=== PATIENT | female | born 1985 | race Caucasian/White ===

== ENCOUNTER 2017-05-31 20:36 | Emergency (ER) | payer OTHER ==
[~2017-05-31] VITALS: Ht 162.6 cm; Wt 65.8 kg
[2017-05-31 20:46] VITALS: BP 121/85
--- NOTE | 2017-05-31 21:21 | PHYS DOC ---
Past History Past Medical History: No Pertinent History Past Surgical History: Tubal ligation, Other Alcohol Use: Rarely Drug Use: None Adult General Chief Complaint Chief Complaint: LACERATION/AVULSION HPI HPI Patient is a 31 year old female who presents with complaint of laceration to the left thumb. Patient states that she was using a kitchen knife to open a box to an ice cream cake when she accidentally sliced the tip of her left thumb. Bleeding was controlled prior to arrival. Patient states that her tetanus is up- to-date. Patient came to have her wound evaluated for need for wound closure. The patient states her last menstrual period was over one month ago. She has had history of tubal ligation. Patient denies loss of motor function of the affected thumb. Review of Systems Review of Systems Constitutional: Denies fever or chills [] HENT: Denies nasal congestion or sore throat [] Musculoskeletal: Denies back pain or joint pain [] Integument: Left thumb laceration[] Neurologic: Denies headache, focal weakness or sensory changes [] Allergies Allergies Allergies Coded Allergies Type Severity Reaction Last Updated Verified nalbuphine Allergy Severe Anaphylaxis 05/31/17 Yes butorphanol Allergy Unknown Unknown 05/31/17 Yes Physical Exam Physical Exam Constitutional: Well developed, well nourished, no acute distress, non-toxic appearance. [] HENT: Normocephalic, atraumatic, bilateral external ears normal, oropharynx moist, no oral exudates, nose normal. [] Skin: Warm, dry, 1 cm linear superficial laceration into dermal layer of the distal tip of the left thumb. [] Extremities: No tenderness, no cyanosis, no clubbing, ROM intact, no edema. [] Neurologic: Alert and oriented X 3, normal motor function, normal sensory function, no focal deficits noted. [] Current Patient Data Vital Signs Vital Signs Date Time Temp Pulse Resp B/P (MAP) Pulse Ox O2 Delivery O2 Flow Rate FiO2 05/31/17 20:46 98.0 77 16 96 Room Air Lab Results Laboratory Tests Test 05/31/17 21:19 POC Urine HCG, Qualitative hcg negative (Negative) EKG EKG Not performed[] Radiology/Procedures Radiology/Procedures Indication: Left thumb laceration Procedure: The patient was placed in the appropriate position. The area was then cleansed with tap water and antibacterial soap. The laceration was closed using Skin affix tissue adhesive and Steri-Strips. Total repaired wound length: 1 cm. The patient tolerated the procedure without difficulty. Complications: None.[] Course & Med Decision Making Course & Med Decision Making Pertinent Labs and Imaging studies reviewed. (See chart for details) Patient's laceration was repaired as outlined in the procedure note. Advised follow-up in one week with primary doctor as needed. Instructed patient that the Steri-Strips and adhesive would come off spontaneously. Advised return emergency department for any worsening symptoms. Patient voiced understanding and in agreement with treatment plan. Dragon Disclaimer Dragon Disclaimer This chart was dictated in whole or in part using Voice Recognition software in a busy, high-work load, and often noisy Emergency Department environment. It may contain unintended and wholly unrecognized errors or omissions. Departure Departure: Impression: Primary Impression: Thumb laceration Disposition: 01 HOME, SELF-CARE Condition: IMPROVED Referrals: FELIPE WALDROP DO (PCP) Patient Instructions: Tissue Adhesive Wound Care Additional Instructions: Follow-up with your primary doctor in 1 week as needed. Return to emergency department for any worsening symptoms. Problem Qualifiers Primary Impression: Thumb laceration Encounter type: initial encounter Damage to nail status: without damage Foreign body presence: without foreign body Laterality: left Qualified Codes : S61.012A - Laceration without foreign body of left thumb without damage to nail, initial encounter ROWAN DARDEN MD May 31, 2017 21:21
== END 2017-05-31 21:25 | disposition home or self-care (01) ==
LOC: ER 20:36
DX: S61.012A Laceration without foreign body of left thumb without damage to nail, initial encounter (principal); Z88.8 Allergy status to other drugs, medicaments and biological substances; W26.0XXA Contact with knife, initial encounter; Y93.89 Activity, other specified; Y99.8 Other external cause status; Y92.89 Other specified places as the place of occurrence of the external cause
CPT/HCPCS: 12001; 81025; 99283-25

== ENCOUNTER → 2017-08-26 | Outpatient (CLI) | payer OTHER ==
--- NOTE | 2017-08-26 13:14 | RAD ---
Abdominal ultrasound, 08/26/2017: History: Right upper quadrant abdominal pain The gallbladder is within normal limits in size. There is no sonographic evidence of cholelithiasis. The gallbladder blake are not thickened. No bile duct dilatation is seen. The visualized portions of the liver, pancreas, spleen and both kidneys are unremarkable. The abdominal aorta and inferior vena cava show no abnormality. No free fluid is evident in the abdomen. IMPRESSION: No significant abnormality is detected.
== END | disposition home or self-care (01) ==
LOC: US 10:44
DX: R10.11 Right upper quadrant pain (principal)
CPT/HCPCS: 76700